=== PATIENT | female | born 1990 | race Caucasian/White ===

== ENCOUNTER 2025-01-21 10:13 | Outpatient (CLI) | payer OTHER, SELFPAY ==
--- NOTE | 2025-01-21 11:00 | NEURO_ITS ---
Impression: # Complains of tingling and numbness of hands. Non-diabetic. ? # No Carpal Tunnel Syndrome. ? # Right ulnar neuropathy across the elbow. ? # Normal needle/EMG exam. Nerve Conduction Studies Anti Sensory Summary Table ?Stim Site NR Peak (ms) P-T Amp (?V) Site1 Site2 Delta-P (ms) Dist (cm) Phillip (m/s) Left Median Anti Sensory (2-3nd Digit) Wrist ? 3.4 24.7 Wrist 2-3nd Digit 3.4 14.0 41 Wrist ? 3.6 16.2 Wrist 2-3nd Digit 3.4 14.0 41 Right Median Anti Sensory (2-3nd Digit) Wrist ? 3.0 41.8 Wrist 2-3nd Digit 3.0 14.0 47 Wrist ? 3.1 19.2 Wrist 2-3nd Digit 3.0 14.0 47 Left Radial Anti Sensory (Base 1st Digit) Wrist ? 2.0 13.0 Wrist Base 1st Digit 2.0 0.0 Right Radial Anti Sensory (Base 1st Digit) Wrist ? 2.2 26.5 Wrist Base 1st Digit 2.2 0.0 Left Ulnar Anti Sensory (5th Digit) Wrist ? 2.2 23.6 Wrist 5th Digit 2.2 14.0 64 Right Ulnar Anti Sensory (5th Digit) Wrist ? 2.3 22.5 Wrist 5th Digit 2.3 14.0 61 Motor Summary Table ?Stim Site NR Onset (ms) O-P Amp (mV) Site1 Site2 Delta-0 (ms) Dist (cm) Phillip (m/s) Left Median Motor (Abd Poll Brev) Wrist ? 3.1 6.2 Elbow Wrist 4.5 27.0 60 Elbow ? 7.6 5.8 Right Median Motor (Abd Poll Brev) Wrist ? 3.3 6.0 Elbow Wrist 4.1 26.0 63 Elbow ? 7.4 5.8 Left Ulnar Motor (Abd Dig Minimi) Wrist ? 2.7 5.4 A Elbow Wrist 4.9 30.0 61 A Elbow ? 7.6 4.5 B Elbow Wrist 3.7 23.0 62 B Elbow ? 6.4 2.7 Right Ulnar Motor (Abd Dig Minimi) Wrist ? 2.7 6.2 A Elbow Wrist 5.8 29.0 50 A Elbow ? 8.5 5.0 B Elbow Wrist 3.5 20.0 57 B Elbow ? 6.2 5.5 F Wave Studies ?NR F-Lat (ms) L-R F-Lat (ms) Left Median (Mrkrs) (Abd Poll Brev) ? 26.05 1.17 Right Median (Mrkrs) (Abd Poll Brev) ? 24.89 1.17 Left Ulnar (Mrkrs) (Abd Dig Min) ? 26.34 0.02 Right Ulnar (Mrkrs) (Abd Dig Min) ? 26.36 0.02 EMG ?Side Muscle Nerve Root Ins Act Fibs Amp Dur Recrt Comment Right 1stDorInt Ulnar C8-T1 Nml Nml Nml Nml Nml Right Ext Indicis Radial (Post Int) C7-8 Nml Nml Nml Nml Nml Right Ext Digitorum Radial (Post Int) C7-8 Nml Nml Nml Nml Nml Right BrachioRad Radial C5-6 Nml Nml Nml Nml Nml Right PronatorTeres Median C6-7 Nml Nml Nml Nml Nml Right Abd Poll Brev Median C8-T1 Nml Nml Nml Nml Nml Right ABD Dig Min Ulnar C8-T1 Nml Nml Nml Nml Nml Right FlexPolLong Median (Ant Int) C7-8 Nml Nml Nml Nml Nml Right Abd Poll Long Radial (Post Int) C7-8 Nml Nml Nml Nml Nml Left 1stDorInt Ulnar C8-T1 Nml Nml Nml Nml Nml Left Ext Indicis Radial (Post Int) C7-8 Nml Nml Nml Nml Nml Left Ext Digitorum Radial (Post Int) C7-8 Nml Nml Nml Nml Nml Left BrachioRad Radial C5-6 Nml Nml Nml Nml Nml Left PronatorTeres Median C6-7 Nml Nml Nml Nml Nml Left Abd Poll Brev Median C8-T1 Nml Nml Nml Nml Nml Left ABD Dig Min Ulnar C8-T1 Nml Nml Nml Nml Nml Left FlexPolLong Median (Ant Int) C7-8 Nml Nml Nml Nml Nml Left Abd Poll Long Radial (Post Int) C7-8 Nml Nml Nml Nml Nml MTDD
== END 2025-01-21 10:14 | disposition home or self-care (01) ==
LOC: ANHNEURO 10:17
DX: G56.21 Lesion of ulnar nerve, right upper limb (principal)
CPT/HCPCS: 95886; 95911